=== PATIENT | female | born 1970 | race Caucasian/White ===

== ENCOUNTER 2018-08-31 05:06 | Emergency (ER) | payer MEDICAID ==
[~2018-08-31] VITALS: Ht 167.6 cm; Wt 56.7 kg
--- NOTE | 2018-08-31 05:12 | NUR ---
Pt. ambulated into ED w/ c/o SOB x 5 days, states "inhaler stopped working" c/o nausea, wheezes heard throughout all [facility] bilat., denies CP/MCKEON/F,
--- NOTE | 2018-08-31 05:14 | NUR ---
at bedside for MSE
[2018-08-31] MEDS ORDERED: IPRATROPIUM BROMIDE 0.5 MG/2.5 ML NEBU NEB ONE ×2 (05:15→07:30)
[2018-08-31] MEDS ORDERED: ALBUTEROL SULFATE 2.5 MG/3 ML NEBU NEB ONE ×2 (05:15→07:30)
[2018-08-31] MEDS ORDERED: ALBUTEROL SULFATE 2.5 MG/3 ML NEBU ONE ×2 (05:20→07:41)
[2018-08-31] MEDS ORDERED: IPRATROPIUM BROMIDE 0.5 MG/2.5 ML NEBU ONE ×2 (05:20→07:41)
--- NOTE | 2018-08-31 05:20 | NUR ---
RT at bedside for breathing tx
[2018-08-31] MEDS ORDERED: methylPREDNISolone SOD SUCC 125 MG/2 ML VIAL IV ONE (06:00)
[2018-08-31] MEDS: ALBUTEROL SULFATE 2.5 MG/3 ML NEBU NEB ONE ×2 (06:00→08:39)
[2018-08-31] MEDS ORDERED: MAGNESIUM SULFATE 2 GM in IV DEXTROSE 5% 100 ML IV ONE (06:00)
[2018-08-31] MEDS: IPRATROPIUM BROMIDE 0.5 MG/2.5 ML NEBU NEB ONE ×2 (06:00→08:39)
[2018-08-31] MEDS ORDERED: IV NORMAL SALINE 1000 ML BAG IV ONE (06:00)
[2018-08-31] MEDS ORDERED: methylPREDNISolone SOD SUCC 125 MG/2 ML VIAL ONE (06:15)
[2018-08-31] MEDS ORDERED: MAGNESIUM SULFATE/D5W 100 ML ONE (06:18)
[2018-08-31] MEDS ORDERED: MAGNESIUM SULFATE 1 GM/2 ML VIAL ONE (06:18)
[2018-08-31 07:00] LABS: BASOPHILS # (AUTO) 0.1 K/uL (0.0-8.0); CREATININE 0.7 mg/dL (0.6-1.3); EOSINOPHILS # (AUTO) 0.7 K/uL (0.0-0.7); EOSINOPHILS % (AUTO) 9.8 % (0.0-7.0); HEMATOCRIT 39.6 % (31.2-41.9); HEMOGLOBIN 13.7 g/dL (10.9-14.3); LYMPHOCYTES # (AUTO) 1.8 K/uL (20.0-40.0); LYMPHOCYTES % (AUTO) 26.6 % (20.5-51.5); MEAN CORPUSCULAR HEMOGLOBIN 29.4 uug (24.7-32.8); MEAN CORPUSCULAR HGB CONC 35 g/dL (32.3-35.6); MEAN CORPUSCULAR VOLUME 85.2 fL (75.5-95.3); MONOCYTES # (AUTO) 0.6 K/uL (2.0-10.0); MONOCYTES % (AUTO) 9.3 % (0.0-11.0); NEUTROPHILS # (AUTO) 3.7 K/uL (1.8-8.9); NEUTROPHILS % (AUTO) 53.3 % (38.5-71.5); PLATELET COUNT (AUTO) 220 K/uL (179-408); RED BLOOD CELL COUNT(AUTO) 4.65 MIL/uL (3.63-4.92); WHITE BLOOD COUNT (AUTO) 6.9 K/uL (3.8-11.8)
--- NOTE | 2018-08-31 07:03 | NUR ---
Report given to Christina GRIFFIN.
[2018-08-31 07:14] LABS: BILIRUBIN,DIRECT 0.1 mg/dL (0.0-0.2); BILIRUBIN,TOTAL 0.2 mg/dL (0.2-1.0); TOTAL PROTEIN, SERUM 7.1 g/dL (6.4-8.2)
[2018-08-31] MEDS ORDERED: ALBUTEROL SULFATE 2.5 MG/ 0.5 ML NEBU ONE (07:41)
[2018-08-31] MEDS ORDERED: LORAZEPAM 0.5 MG TABLET PO ONE (08:30)
[2018-08-31] MEDS ORDERED: LORAZEPAM 1 MG TABLET ONE (08:31)
--- NOTE | 2018-08-31 08:35 | NUR ---
Pt states feeling better.
--- NOTE | 2018-08-31 08:40 | NUR ---
IV removed. Catheter intact and site benign. Pressure and 4x4 gauze applied to site. No bleeding noted.
[2018-08-31 08:41] VITALS: BP 112/67
--- NOTE | 2018-08-31 08:41 | NUR ---
Patient discharged to home in stable conditon. Written and verbal after care instructions given. Patient verbalizes understanding of instructions.
== END 2018-08-31 08:43 | disposition home or self-care (01) ==
LOC: ER 05:08
DX: J45.901 Unspecified asthma with (acute) exacerbation (principal); Z88.1 Allergy status to other antibiotic agents
CPT/HCPCS: 36415; 71045; 80048; 80076; 83880; 84484; 85025; 94644 ×2; 96365; 96366; 96375; 99285; J2930; J3475 ×2; 70030-TC; A4663; J3590; J7030

== ENCOUNTER 2019-11-03 20:56 | Emergency (ER) | payer MEDICAID, OTHER ==
[~2019-11-03] VITALS: Ht 167.6 cm; Wt 61.2 kg
[2019-11-03] MEDS ORDERED: HYDROCODONE/APAP 10-325 MG TABLET ONE (22:13)
[2019-11-03] MEDS ORDERED: SULFAMETH/TRIMETH 800/160 MG TABLET ONE (22:13)
[2019-11-03] MEDS: HYDROCODONE/APAP 10-325 MG TABLET PO ONE (22:16)
[2019-11-03] MEDS: SULFAMETH/TRIMETH 800/160 MG TABLET PO ONE (22:16)
--- NOTE | 2019-11-03 22:32 | NUR ---
Patient discharged to home in stable conditon. Written and verbal after care instructions given. Patient verbalizes understanding of instructions. Pt walked out of ER in stable gait. No acute distress noted. Vital signs stable.
[2019-11-03 22:33] VITALS: BP 110/62
== END 2019-11-03 22:34 | disposition home or self-care (01) ==
LOC: ER 20:59
DX: L08.9 Local infection of the skin and subcutaneous tissue, unspecified (principal); F10.10 Alcohol abuse, uncomplicated; J45.909 Unspecified asthma, uncomplicated; Z88.8 Allergy status to other drugs, medicaments and biological substances
CPT/HCPCS: A4663

== ENCOUNTER 2021-03-07 00:28 | Emergency (ER) | payer OTHER ==
[~2021-03-07] VITALS: Ht 167.6 cm; Wt 63.5 kg
--- NOTE | 2021-03-07 00:47 | NUR ---
MD Granados at bedside to do MSE
--- NOTE | 2021-03-07 01:23 | NUR ---
Patient discharged to home in stable condition. Written and verbal after care instructions given. Patient verbalizes understanding of instructions. Stressed follow up or return to ER for worsening s/s. Pt walked with steady gait. Pt. instructed not to drive. Pt. ws picked up by friend.
[2021-03-07 01:24] VITALS: BP 115/68
== END 2021-03-07 01:26 | disposition home or self-care (01) ==
LOC: ER 00:37
DX: Z47.89 Encounter for other orthopedic aftercare (principal); M79.671 Pain in right foot; J45.909 Unspecified asthma, uncomplicated
CPT/HCPCS: A4663

== ENCOUNTER 2022-05-27 02:12 | Emergency (ER) | payer OTHER ==
[~2022-05-27] VITALS: Ht 167.6 cm; Wt 68.0 kg
--- NOTE | 2022-05-27 03:22 | NUR ---
Pt here for L leg cellulitis and pain. No distress noted at this time. Pt able to ambulate and make needs known.
[2022-05-27] MEDS ORDERED: CEFAZOLIN 1 G in IV DEXTROSE 5% 50 ML IV ONE (03:45)
[2022-05-27] MEDS ORDERED: OXYCODONE/APAP 5-325 MG TABLET PO ONE ×2 (03:45→05:30)
[2022-05-27] MEDS ORDERED: OXYCODONE/APAP 5-325 MG TABLET ONE ×2 (03:52→05:25)
[2022-05-27] MEDS ORDERED: CEFAZOLIN 1 G VIAL ONE (04:07)
[2022-05-27 04:54] LABS: HEMATOCRIT 38.1 % (31.2-41.9); MEAN CORPUSCULAR HEMOGLOBIN 29.5 uug (24.7-32.8); MEAN CORPUSCULAR VOLUME 87.5 fL (75.5-95.3); PLATELET COUNT (AUTO) 162 K/uL (179-408)
[2022-05-27 04:59] LABS: CREATININE 0.9 mg/dL (0.6-1.3)
[2022-05-27 05:02] LABS: *BILIRUBIN,URIN NEGATIVE (NEGATIVE); *CLARITY,URINE SLIGHTLY CLOUDY (CLEAR); *COLOR,URINE YELLOW (YELLOW); *KETONES,URINE NEGATIVE (NEGATIVE); *UROBILINOGEN,URINE 0.2 E.U./dl (NORMAL); LEUKOCYTE ESTERASE ,URINE NEGATIVE (NEGATIVE); NITRITE, URINE NEGATIVE (NEGATIVE); UGLUCOSE NEGATIVE (NEGATIVE)
[2022-05-27 05:05] LABS: BILIRUBIN,DIRECT 0.1 mg/dL (0.0-0.2); BILIRUBIN,TOTAL 0.3 mg/dL (0.2-1.0); TOTAL PROTEIN, SERUM 7.3 g/dL (6.4-8.2)
[2022-05-27] MEDS ORDERED: MAGNESIUM SULFATE/D5W 200 ML ONE (05:07)
[2022-05-27 05:13] LABS: *BLOOD, URINE TRACE (NEGATIVE)
[2022-05-27] MEDS: MAGNESIUM SULFATE/D5W 100 ML IV SCH (05:13)
[2022-05-27] MEDS ORDERED: CEPH500C2 PO (05:14)
[2022-05-27] MEDS ORDERED: SULF1TAB48 PO (05:14)
[2022-05-27] MEDS ORDERED: OXYC-128 PO (05:14)
[2022-05-27 05:42] LABS: BACTERIA,URINE FEW /HPF (NONE SEEN); SQUAMOUS EPITHELIAL CELL,UR MANY /HPF (NONE SEEN); WBC,URINE 0-3 /HPF (0-3)
[2022-05-27 07:08] VITALS: BP 129/70
== END 2022-05-27 07:08 | disposition home or self-care (01) ==
LOC: ER 02:15
DX: S80.812A Abrasion, left lower leg, initial encounter (principal); L03.116 Cellulitis of left lower limb; W22.03XA Walked into furniture, initial encounter; Y92.89 Other specified places as the place of occurrence of the external cause; J45.909 Unspecified asthma, uncomplicated
CPT/HCPCS: 99284; 96365; 96375; 80076; 80048; 81001; 83735; 85025; 36415; J0690; J3475; A4663

== ENCOUNTER 2022-08-21 02:18 | Emergency (ER) | payer OTHER ==
[~2022-08-21] VITALS: Ht 167.6 cm; Wt 68.0 kg
[~2022-08-21 02:18] MED LIST: CEPH500C2 PO; OXYC-128 PO; SULF1TAB48 PO
--- NOTE | 2022-08-21 03:20 | NUR ---
seen and exmined by Dr. Connolly
--- NOTE | 2022-08-21 03:25 | NUR ---
Measured and marked left leg redness site. per Dr. Connolly
[2022-08-21] MEDS ORDERED: SULFAMETH/TRIMETH 800/160 MG TABLET ONE (03:27)
[2022-08-21] MEDS ORDERED: SULFAMETH/TRIMETH 800/160 MG TABLET PO ONE (03:30)
[2022-08-21] MEDS ORDERED: SULF1TAB48 PO (03:34)
[2022-08-21] MEDS ORDERED: IBUPROFEN 600 MG TABLET ONE (03:40)
[2022-08-21] MEDS ORDERED: IBUPROFEN 600 MG TABLET PO ONE (03:45)
[2022-08-21 03:53] VITALS: BP 120/80
--- NOTE | 2022-08-21 03:53 | NUR ---
Patient discharged to home in stable condition. Written and verbal after care instructions given. Patient verbalizes understanding of instructions. Stressed follow up or return to ER for worsening s/s.
== END 2022-08-21 03:54 | disposition home or self-care (01) ==
LOC: ER 02:21
DX: L03.115 Cellulitis of right lower limb (principal); J45.909 Unspecified asthma, uncomplicated; R03.0 Elevated blood-pressure reading, without diagnosis of hypertension; Z88.1 Allergy status to other antibiotic agents
CPT/HCPCS: A4663

== ENCOUNTER → 2022-10-27 | Emergency (ER) | payer OTHER ==
[~2022-10-27] VITALS: Ht 170.2 cm; Wt 68.0 kg
[~2022-10-27] MED LIST changes: +CEPH250C PO; +HYDR-4209 PO; +MORPHINE SULFATE 2 MG/1 ML DISP.SYRIN ONE; +MORPHINE SULFATE 4 MG/1 ML DISP.SYRIN ONE; +TRIA15CR2 TP
[2022-10-27] MEDS: MORPHINE SULFATE 4 MG/1 ML DISP.SYRIN IM ONE (03:07)
--- NOTE | 2022-10-27 03:36 | NUR ---
Late entry: Patient into room #4-a seen by ER MD. Medicated for pain as per order, okay for discharge home with family. ACI given states understanding.
[2022-10-27 03:38] VITALS: BP 121/55
== END | disposition home or self-care (01) ==
LOC: ER 02:19
DX: T63.481A Toxic effect of venom of other arthropod, accidental (unintentional), initial encounter (principal); R60.0 Localized edema; Y92.89 Other specified places as the place of occurrence of the external cause; J45.909 Unspecified asthma, uncomplicated; Z88.1 Allergy status to other antibiotic agents
CPT/HCPCS: 99283; 73630; 96372; J2270 ×2; A4663

== ENCOUNTER 2023-05-22 02:23 | Emergency (ER) | payer OTHER ==
[~2023-05-22] VITALS: Ht 170.2 cm; Wt 68.0 kg
[~2023-05-22 02:23] MED LIST changes: +CYCL5TAB PO; -MORPHINE SULFATE 2 MG/1 ML DISP.SYRIN ONE; -MORPHINE SULFATE 4 MG/1 ML DISP.SYRIN ONE; +NAPR-1009 PO
[2023-05-22] MEDS ORDERED: LORAZEPAM 2 MG/1 ML VIAL ONE (02:58)
[2023-05-22] MEDS ORDERED: LORAZEPAM 2 MG/1 ML VIAL IV ONE (03:00)
[2023-05-22] MEDS ORDERED: ONDANSETRON 4 MG/2 ML VIAL ONE (03:50)
[2023-05-22] MEDS ORDERED: HYDROMORPHONE 1 MG/1 ML DISP.SYRIN ONE (03:51)
[2023-05-22] MEDS ORDERED: ONDANSETRON 4 MG/2 ML VIAL IV ONE (04:00)
[2023-05-22] MEDS ORDERED: HYDROMORPHONE 1 MG/1 ML DISP.SYRIN IV ONE (04:00)
[2023-05-22] MEDS ORDERED: IBUP-1955 PO (05:28)
[2023-05-22] MEDS ORDERED: CYCL10TA9 PO (05:28)
[2023-05-22 06:42] VITALS: BP 123/74; O2SAT 100
== END 2023-05-22 06:30 | disposition home or self-care (01) ==
LOC: ER 02:39
DX: M62.830 Muscle spasm of back (principal); M54.6 Pain in thoracic spine; M54.50 Low back pain, unspecified; R07.89 Other chest pain; J45.909 Unspecified asthma, uncomplicated; Z88.1 Allergy status to other antibiotic agents; Z79.899 Other long term (current) drug therapy
CPT/HCPCS: 99284; 96374; 71045; 96375; 93005; J2060; J2405; J1170; A4663

== ENCOUNTER 2024-04-01 10:40 | Emergency (ER) | payer OTHER ==
[~2024-04-01] VITALS: Ht 170.2 cm; Wt 68.0 kg
[~2024-04-01 10:40] MED LIST changes: +CYCL10TA9 PO; +IBUP-1955 PO; +NAPR500T6 PO; +NITR-104 PO; +PHEN-704 PO
[2024-04-01] MEDS ORDERED: LIDOCAINE 4% TOPICAL 50 ML BOTTLE ONE (11:26)
[2024-04-01] MEDS ORDERED: NEOMY/BACITRAC/POLYMI OINT 28.35 GM TUBE ONE (11:29)
[2024-04-01] MEDS: LIDOCAINE 4% TOPICAL 50 ML BOTTLE TP ONE (11:40)
[2024-04-01] MEDS: NEOMY/BACITRA/POLYMYXIN B OINT UD PACKET TP ONE (11:47)
[2024-04-01] MEDS ORDERED: HYDR-3972 PO (12:50)
[2024-04-01 12:57] VITALS: BP 133/70; TEMP 97; O2SAT 99
== END 2024-04-01 13:00 | disposition home or self-care (01) ==
LOC: ER 10:40
DX: S52.591A Other fractures of lower end of right radius, initial encounter for closed fracture (principal); S93.492A Sprain of other ligament of left ankle, initial encounter; S80.01XA Contusion of right knee, initial encounter; S80.02XA Contusion of left knee, initial encounter; S60.212A Contusion of left wrist, initial encounter; S70.312A Abrasion, left thigh, initial encounter; S60.512A Abrasion of left hand, initial encounter; S60.417A Abrasion of left little finger, initial encounter; J45.909 Unspecified asthma, uncomplicated; Z98.890 Other specified postprocedural states; Z79.899 Other long term (current) drug therapy; Z79.1 Long term (current) use of non-steroidal anti-inflammatories (NSAID); Z88.5 Allergy status to narcotic agent; Z88.1 Allergy status to other antibiotic agents; W18.39XA Other fall on same level, initial encounter; Y93.89 Activity, other specified; Y92.89 Other specified places as the place of occurrence of the external cause; Y99.8 Other external cause status
CPT/HCPCS: 73100; 73120; 73560; 73600; A4606; A4663

== ENCOUNTER 2024-08-19 18:47 | Emergency (ER) | payer OTHER ==
[~2024-08-19] VITALS: Ht 170.2 cm; Wt 66.2 kg
[~2024-08-19 18:47] MED LIST changes: +HYDR-3972 PO
[2024-08-19] MEDS ORDERED: HYDROMORPHONE 1 MG/1 ML DISP.SYRIN ONE (19:56)
[2024-08-19] MEDS ORDERED: DICYCLOMINE HCL LIQ 10 MG/5 ML UDC ONE (19:56)
[2024-08-19] MEDS ORDERED: ONDANSETRON 4 MG/2 ML VIAL ONE (19:56)
[2024-08-19] MEDS ORDERED: DIPHENOXYLATE HCL/ATROP SULF TABLET ONE (19:56)
[2024-08-19 19:57] LABS: BASOPHILS % (AUTO) 0.3 % (0.0-2.0); EOSINOPHILS # (AUTO) 0.2 K/uL (0.0-0.7); EOSINOPHILS % (AUTO) 1.4 % (0.0-7.0); HEMATOCRIT 43.8 % (31.2-41.9); HEMOGLOBIN 14.7 g/dL (10.9-14.3); LYMPHOCYTES # (AUTO) 1.7 K/uL (0.8-4.8); LYMPHOCYTES % (AUTO) 15.3 % (20.5-51.5); MEAN CORPUSCULAR HEMOGLOBIN 29.3 uug (24.7-32.8); MEAN CORPUSCULAR HGB CONC 34 g/dL (32.3-35.6); MEAN CORPUSCULAR VOLUME 87.6 fL (75.5-95.3); MONOCYTES # (AUTO) 0.8 K/uL (0.1-1.30); MONOCYTES % (AUTO) 7.8 % (0.0-11.0); NEUTROPHILS # (AUTO) 8.2 K/uL (1.8-8.9); NEUTROPHILS % (AUTO) 75.2 % (38.5-71.5); PLATELET COUNT (AUTO) 182 K/uL (179-408); RED CELL DISTRIBUTION WIDTH 13.4 % (12.3-17.7); WHITE BLOOD COUNT (AUTO) 10.8 K/uL (3.8-11.8)
[2024-08-19 20:00] LABS: DIFFERENTIAL COMMENT 1
[2024-08-19 20:10] LABS: ALBUMIN 3.7 g/dL (3.4-5.0); BILIRUBIN,DIRECT 0.2 mg/dL (0.0-0.2); BILIRUBIN,TOTAL 0.6 mg/dL (0.2-1.0); CALCIUM 9.3 mg/dL (8.5-10.1); CREATININE 0.7 mg/dL (0.6-1.3); POTASSIUM 4.4 mmol/L (3.5-5.1); TOTAL PROTEIN, SERUM 7.5 g/dL (6.4-8.2)
[2024-08-19] MEDS: DICYCLOMINE HCL LIQ 10 MG/5 ML UDC PO ONE (20:10)
[2024-08-19] MEDS: DIPHENOXYLATE HCL/ATROP SULF TABLET PO ONE (20:10)
[2024-08-19] MEDS: ONDANSETRON 4 MG/2 ML VIAL IV ONE (20:10)
[2024-08-19] MEDS: HYDROMORPHONE 1 MG/1 ML DISP.SYRIN IV ONE (20:10)
[2024-08-19] MEDS: IV LACTATED RINGERS SOLUTION 1,000 ML IV ONE (20:18)
[2024-08-19] MEDS ORDERED: DICY20TA11 PO (21:03)
[2024-08-19] MEDS ORDERED: ONDA4TAB11 PO (21:03)
[2024-08-19] MEDS ORDERED: HYDR-3980 PO (21:03)
[2024-08-19 21:34] VITALS: BP 118/70; TEMP 98; O2SAT 98
== END 2024-08-19 21:34 | disposition home or self-care (01) ==
LOC: ER 18:47
DX: S76.012A Strain of muscle, fascia and tendon of left hip, initial encounter (principal); R10.9 Unspecified abdominal pain; R11.2 Nausea with vomiting, unspecified; R19.7 Diarrhea, unspecified; J45.909 Unspecified asthma, uncomplicated; Z88.1 Allergy status to other antibiotic agents; X58.XXXA Exposure to other specified factors, initial encounter; Y93.89 Activity, other specified; Y92.89 Other specified places as the place of occurrence of the external cause; Y99.8 Other external cause status
CPT/HCPCS: 99284; 96374; 96361; 96375; 80076; 80048; 83690; 85025; 36415; J2405; J1171; J7120; A4606; A4663

== ENCOUNTER 2024-08-25 18:59 | Inpatient (IN) | payer OTHER ==
[~2024-08-25] VITALS: Ht 170.2 cm; Wt 66.7 kg
[~2024-08-25 18:59] MED LIST changes: +DICY20TA11 PO; +HYDR-3980 PO; +ONDA4TAB11 PO
[2024-08-25] MEDS ORDERED: MORPHINE SULFATE 2 MG/1 ML DISP.SYRIN ONE (20:04)
[2024-08-25] MEDS ORDERED: ONDANSETRON 4 MG/2 ML VIAL ONE (20:04)
[2024-08-25 20:07] LABS: BASOPHILS # (AUTO) 0.1 K/UL (0.0-0.2); BASOPHILS % (AUTO) 0.5 % (0.0-2.0); EOSINOPHILS # (AUTO) 0.4 K/uL (0.0-0.7); EOSINOPHILS % (AUTO) 2.7 % (0.0-7.0); HEMATOCRIT 45.1 % (31.2-41.9); HEMOGLOBIN 15.1 g/dL (10.9-14.3); LYMPHOCYTES # (AUTO) 1.6 K/uL (0.8-4.8); LYMPHOCYTES % (AUTO) 12.1 % (20.5-51.5); MEAN CORPUSCULAR HEMOGLOBIN 29.2 uug (24.7-32.8); MEAN CORPUSCULAR HGB CONC 34 g/dL (32.3-35.6); MEAN CORPUSCULAR VOLUME 86.9 fL (75.5-95.3); MONOCYTES # (AUTO) 0.8 K/uL (0.1-1.30); MONOCYTES % (AUTO) 5.8 % (0.0-11.0); NEUTROPHILS # (AUTO) 10.7 K/uL (1.8-8.9); NEUTROPHILS % (AUTO) 78.9 % (38.5-71.5); PLATELET COUNT (AUTO) 216 K/uL (179-408); RED BLOOD CELL COUNT(AUTO) 5.19 MIL/uL (3.63-4.92); RED CELL DISTRIBUTION WIDTH 12.9 % (12.3-17.7); WHITE BLOOD COUNT (AUTO) 13.6 K/uL (3.8-11.8)
[2024-08-25 20:21] LABS: ALBUMIN 3.7 g/dL (3.4-5.0); BILIRUBIN,TOTAL 0.7 mg/dL (0.2-1.0); CALCIUM 9.4 mg/dL (8.5-10.1); CREATININE 0.6 mg/dL (0.6-1.3); POTASSIUM 3.9 mmol/L (3.5-5.1); TOTAL PROTEIN, SERUM 7.6 g/dL (6.4-8.2)
[2024-08-25] MEDS: IV NS 1000 ML 1,000 ML IV ONE (20:22)
[2024-08-25] MEDS: ONDANSETRON 4 MG/2 ML VIAL IV ONE (20:23)
[2024-08-25] MEDS: MORPHINE SULFATE 2 MG/1 ML DISP.SYRIN IV ONE (20:23)
[2024-08-25 20:50] LABS: *BLOOD, URINE 2+ (NEGATIVE); *CLARITY,URINE CLEAR (CLEAR); *COLOR,URINE YELLOW (YELLOW); *KETONES,URINE NEGATIVE (NEGATIVE); *PROTEIN,URINE 1+ (NEGATIVE); *UROBILINOGEN,URINE 0.2 E.U./dl (NORMAL); LEUKOCYTE ESTERASE ,URINE 1+ (NEGATIVE); NITRITE, URINE NEGATIVE (NEGATIVE); UGLUCOSE NEGATIVE (NEGATIVE)
[2024-08-25 20:51] LABS: *BILIRUBIN,URIN 1+ (NEGATIVE)
[2024-08-25 20:52] LABS: *URINE HCG, QUAL NEGATIVE (NEGATIVE)
[2024-08-25] MEDS ORDERED: CEFTRIAXONE /D5W 50ML IVPB **ER PYXIS IV ONE (22:04)
[2024-08-25] MEDS: CEFTRIAXONE 1 G in IV DEXTROSE 5% 50 ML IV ONE (22:07)
[2024-08-26] MEDS ORDERED: KETOROLAC TROMETHAMINE 30 MG INJ ONE (00:19)
[2024-08-26] MEDS: KETOROLAC TROMETHAMINE 30 MG INJ IVP ONE (00:21)
[2024-08-26] MEDS ORDERED: ONDANSETRON 4 MG/2 ML VIAL IV PRN (01:30)
[2024-08-26] MEDS ORDERED: REMEDY ESSENTIAL ZINC PASTE 113 GM TP PRN (01:30)
[2024-08-26] MEDS ORDERED: ALBUTEROL SULFATE 2.5 MG/3 ML NEBU NEB PRN (01:30)
[2024-08-26] MEDS ORDERED: METRONIDAZOLE 500 MG/NS 100ML 100 ML IV ONE (04:35)
[2024-08-26] MEDS: METRONIDAZOLE 500 MG/NS 100ML 500 MG in PREMIXED 1 EACH IV SCH ×2 (04:51→13:49)
[2024-08-26] MEDS: PANTOPRAZOLE SODIUM 40 MG TABLET.DR PO SCH (06:14)
[2024-08-26 06:44] LABS: BASOPHILS % (AUTO) 0.4 % (0.0-2.0); EOSINOPHILS # (AUTO) 0.4 K/uL (0.0-0.7); EOSINOPHILS % (AUTO) 4.6 % (0.0-7.0); HEMATOCRIT 40.7 % (31.2-41.9); HEMOGLOBIN 13.6 g/dL (10.9-14.3); LYMPHOCYTES # (AUTO) 1.5 K/uL (0.8-4.8); MEAN CORPUSCULAR HEMOGLOBIN 29.7 uug (24.7-32.8); MEAN CORPUSCULAR HGB CONC 33 g/dL (32.3-35.6); MEAN CORPUSCULAR VOLUME 88.7 fL (75.5-95.3); MONOCYTES # (AUTO) 0.7 K/uL (0.1-1.30); MONOCYTES % (AUTO) 8.2 % (0.0-11.0); NEUTROPHILS # (AUTO) 6.2 K/uL (1.8-8.9); NEUTROPHILS % (AUTO) 69.8 % (38.5-71.5); PLATELET COUNT (AUTO) 176 K/uL (179-408); RED BLOOD CELL COUNT(AUTO) 4.58 MIL/uL (3.63-4.92); RED CELL DISTRIBUTION WIDTH 13.2 % (12.3-17.7); WHITE BLOOD COUNT (AUTO) 8.9 K/uL (3.8-11.8)
[2024-08-26 06:52] LABS: CALCIUM 8.8 mg/dL (8.5-10.1); CREATININE 0.8 mg/dL (0.6-1.3); MAGNESIUM 2.3 mg/dL (1.8-2.4); POTASSIUM 3.8 mmol/L (3.5-5.1)
[2024-08-26 06:57] LABS: DIFFERENTIAL COMMENT 1
[2024-08-26 08:31] VITALS: BP 100/57; TEMP 98.3; O2SAT 98
[2024-08-26] MEDS: ACETAMINOPHEN 325 MG TABLET PO PRN (08:52)
[2024-08-26] MEDS: ENOXAPARIN SODIUM 40 MG/0.4 ML DISP.SYRIN SQ SCH (08:54)
[2024-08-26] MEDS ORDERED: FLUT1BLS IH (12:14)
[2024-08-26] MEDS: FLUTICASONE/VILANTEROL 1 EACH BLST.W.DEV IH SCH (13:50)
[2024-08-26] MEDS: IV NS 1000 ML 1,000 ML IV PRN (19:57)
[2024-08-26 20:15] VITALS: BP 102/51; TEMP 98.1; O2SAT 96
[2024-08-26] MEDS: DICYCLOMINE HCL 10 MG CAPSULE PO PRN (20:50)
[2024-08-26] MEDS: DOCUSATE SODIUM 100 MG/10 ML LIQUID UDC PO SCH (20:51)
[2024-08-26] MEDS: CEFTRIAXONE 1 G in IV DEXTROSE 5% 50 ML IV SCH (21:37)
[2024-08-27] MEDS: HYDROCODONE/APAP 5-325MG TABLET PO PRN (05:52)
[2024-08-27 05:57] VITALS: BP 111/61; TEMP 97.9; O2SAT 95
[2024-08-27 06:55] LABS: BASOPHILS % (AUTO) 0.4 % (0.0-2.0); EOSINOPHILS # (AUTO) 0.3 K/uL (0.0-0.7); EOSINOPHILS % (AUTO) 4.6 % (0.0-7.0); HEMOGLOBIN 12.3 g/dL (10.9-14.3); LYMPHOCYTES # (AUTO) 1.5 K/uL (0.8-4.8); LYMPHOCYTES % (AUTO) 23.1 % (20.5-51.5); MEAN CORPUSCULAR HEMOGLOBIN 29.9 uug (24.7-32.8); MEAN CORPUSCULAR HGB CONC 34 g/dL (32.3-35.6); MEAN CORPUSCULAR VOLUME 87.4 fL (75.5-95.3); MONOCYTES # (AUTO) 0.6 K/uL (0.1-1.30); MONOCYTES % (AUTO) 9.1 % (0.0-11.0); NEUTROPHILS % (AUTO) 62.8 % (38.5-71.5); PLATELET COUNT (AUTO) 154 K/uL (179-408); RED BLOOD CELL COUNT(AUTO) 4.12 MIL/uL (3.63-4.92); WHITE BLOOD COUNT (AUTO) 6.3 K/uL (3.8-11.8)
[2024-08-27 07:10] LABS: DIFFERENTIAL COMMENT 1
[2024-08-27 07:13] LABS: CALCIUM 8.4 mg/dL (8.5-10.1); CREATININE 0.7 mg/dL (0.6-1.3); MAGNESIUM 1.9 mg/dL (1.8-2.4); PHOSPHOROUS 3.2 mg/dL (2.5-4.9); POTASSIUM 4.1 mmol/L (3.5-5.1)
[2024-08-27] MEDS: DOCUSATE SODIUM 100 MG CAPSULE PO SCH (08:31)
[2024-08-27] MEDS ORDERED: METR500T PO (10:08)
[2024-08-27] MEDS ORDERED: AMOX-427 PO (10:08)
== END 2024-08-27 11:00 | disposition home or self-care (01) | DRG 463 ==
LOC: ER 18:59 → MEDSURG3 22:30
PROVIDERS: ADMIT Nurse Practitioner Family; ATTEND Nurse Practitioner Family
DX: N39.0 Urinary tract infection, site not specified (principal); A04.9 Bacterial intestinal infection, unspecified; J45.909 Unspecified asthma, uncomplicated; K57.30 Diverticulosis of large intestine without perforation or abscess without bleeding; Z88.1 Allergy status to other antibiotic agents
CPT/HCPCS: 36415; 83690; 83735; 84100; 84703; 85025; 87040; A4663; G0378; J0696; J1650; J1885; J2270; J2405; J3490; J7040; J7042

== ENCOUNTER 2025-04-26 12:31 | Emergency (ER) | payer OTHER ==
[~2025-04-26] VITALS: Ht 167.6 cm; Wt 65.8 kg
[~2025-04-26 12:31] MED LIST changes: +AMOX-427 PO; -CEPH250C PO; -CEPH500C2 PO; -CYCL10TA9 PO; -CYCL5TAB PO; -DICY20TA11 PO; +FLUT1BLS IH; -HYDR-3972 PO; -HYDR-3980 PO; -HYDR-4209 PO; -IBUP-1955 PO; +METR500T PO; -NAPR-1009 PO; -NAPR500T6 PO; -NITR-104 PO; -ONDA4TAB11 PO; -OXYC-128 PO; -PHEN-704 PO; -SULF1TAB48 PO; -TRIA15CR2 TP
[2025-04-26 12:56] VITALS: O2SAT 98
== END 2025-04-26 16:28 | disposition left against medical advice (07) ==
LOC: ER 12:31
DX: R11.0 Nausea (principal); Z53.21 Procedure and treatment not carried out due to patient leaving prior to being seen by health care provider
CPT/HCPCS: A4606; A4663

== ENCOUNTER 2025-07-06 19:13 | Emergency (ER) | payer OTHER ==
[~2025-07-06] VITALS: Ht 170.2 cm; Wt 68.0 kg
[2025-07-06 19:13] VITALS: BP 124/71
[~2025-07-06 19:13] MED LIST changes: -AMOX-427 PO; -METR500T PO
[2025-07-06 19:33] LABS: *BILIRUBIN,URIN NEGATIVE (NEGATIVE); *BLOOD, URINE 3+ (NEGATIVE); *CLARITY,URINE TURBID (CLEAR); *COLOR,URINE YELLOW (YELLOW); *KETONES,URINE TRACE (NEGATIVE); *PROTEIN,URINE 1+ (NEGATIVE); *UROBILINOGEN,URINE 1.0 E.U./dl (NORMAL); LEUKOCYTE ESTERASE ,URINE 1+ (NEGATIVE); NITRITE, URINE NEGATIVE (NEGATIVE); UGLUCOSE NEGATIVE (NEGATIVE)
[2025-07-06 19:39] LABS: SQUAMOUS EPITHELIAL CELL,UR FEW /HPF (NONE SEEN)
[2025-07-06] MEDS ORDERED: PHENAZOPYRIDINE HCL 100 MG TABLET ONE (19:49)
[2025-07-06] MEDS: PHENAZOPYRIDINE HCL 100 MG TABLET PO ONE (19:51)
[2025-07-06] MEDS ORDERED: CEFTRIAXONE 500 MG VIAL ONE (19:56)
[2025-07-06] MEDS ORDERED: LIDOCAINE HCL 1% 20 ML VIAL ONE (19:56)
[2025-07-06] MEDS: CEFTRIAXONE 500 MG VIAL IM ONE (20:01)
[2025-07-06] MEDS ORDERED: PHEN-894 PO (20:02)
[2025-07-06] MEDS ORDERED: CEFP200T14 PO (20:02)
[2025-07-06 20:17] VITALS: BP 120/71; TEMP 98; O2SAT 97
== END 2025-07-06 20:17 | disposition home or self-care (01) ==
LOC: ER 19:13
DX: N30.90 Cystitis, unspecified without hematuria (principal); J45.909 Unspecified asthma, uncomplicated; Z79.51 Long term (current) use of inhaled steroids; Z87.440 Personal history of urinary (tract) infections; Z88.1 Allergy status to other antibiotic agents; Z88.7 Allergy status to serum and vaccine
CPT/HCPCS: 87086; A4606; A4663; J0696; J3490

== ENCOUNTER 2025-08-07 20:51 | Emergency (ER) | payer OTHER ==
[~2025-08-07] VITALS: Ht 170.2 cm; Wt 68.0 kg
[~2025-08-07 20:51] MED LIST changes: +CEFP200T14 PO; +PHEN-894 PO
[2025-08-07 20:59] VITALS: BP 119/76
[2025-08-07] MEDS ORDERED: IBUPROFEN 600 MG TABLET ONE (21:30)
[2025-08-07] MEDS: IBUPROFEN 600 MG TABLET PO ONE (21:31)
[2025-08-07] MEDS ORDERED: SULFAMETH/TRIMETH 800/160 MG TABLET ONE (22:36)
[2025-08-07] MEDS ORDERED: MUPIROCIN 2% OINT 22 GM TUBE ONE (22:36)
[2025-08-07] MEDS: SULFAMETH/TRIMETH 800/160 MG TABLET PO ONE (22:38)
[2025-08-07] MEDS: BACITRACIN ZINC OINT 15 GM TUBE TOP STA (22:38)
[2025-08-07] MEDS ORDERED: SULF1TAB48 PO (22:47)
[2025-08-07] MEDS ORDERED: CEPH500C2 PO (22:47)
[2025-08-07] MEDS ORDERED: BACI1OIN8 TP (22:47)
[2025-08-07 22:52] VITALS: BP 119/76; O2SAT 97
== END 2025-08-07 22:52 | disposition home or self-care (01) ==
LOC: ER 20:53
DX: L03.313 Cellulitis of chest wall (principal); L03.011 Cellulitis of right finger; L98.A3 Non-pressure chronic ulcer of hand; J45.909 Unspecified asthma, uncomplicated; Z79.51 Long term (current) use of inhaled steroids; Z88.1 Allergy status to other antibiotic agents; Z88.7 Allergy status to serum and vaccine
CPT/HCPCS: A4606; A4663

== ENCOUNTER 2025-09-16 21:36 | Emergency (ER) | payer OTHER ==
[~2025-09-16] VITALS: Ht 170.2 cm; Wt 68.0 kg
[~2025-09-16 21:36] MED LIST changes: +BACI1OIN8 TP; +CEPH500C2 PO; +SULF1TAB48 PO
[2025-09-16 21:49] VITALS: BP 132/65
[2025-09-16] MEDS ORDERED: HYDR-3980 PO (22:11)
[2025-09-16] MEDS ORDERED: ONDA-243 PO (22:11)
[2025-09-16] MEDS ORDERED: DIPH25CA83 PO (22:11)
[2025-09-16] MEDS ORDERED: CLIN-188 PO (22:11)
[2025-09-16] MEDS ORDERED: DEXAMETHASONE SOD PHOSPHATE 4 MG INJ ONE (22:12)
[2025-09-16] MEDS ORDERED: diphenhydrAMINE 50 MG/1 ML VIAL ONE (22:13)
[2025-09-16] MEDS ORDERED: ONDANSETRON ODT 4 MG TAB.RAPDIS ONE (22:13)
[2025-09-16] MEDS ORDERED: HYDROCODONE/APAP 10-325 MG TABLET ONE (22:13)
[2025-09-16] MEDS: ONDANSETRON ODT 4 MG TAB.RAPDIS SL ONE (22:17)
[2025-09-16] MEDS: HYDROCODONE/APAP 10-325 MG TABLET PO ONE (22:17)
[2025-09-16] MEDS: DEXAMETHASONE SOD PHOSPHATE 4 MG INJ IM ONE (22:22)
[2025-09-16] MEDS: diphenhydrAMINE 50 MG/1 ML VIAL IM ONE (22:22)
[2025-09-16 22:57] VITALS: BP 132/65; TEMP 98.1; O2SAT 98
== END 2025-09-16 22:58 | disposition home or self-care (01) ==
LOC: ER 21:49
DX: R21 Rash and other nonspecific skin eruption (principal); L29.9 Pruritus, unspecified; J45.909 Unspecified asthma, uncomplicated; Z79.51 Long term (current) use of inhaled steroids; Z88.1 Allergy status to other antibiotic agents; Z88.7 Allergy status to serum and vaccine
CPT/HCPCS: 99284; 96372 ×2; J0696; J1100; J1200; A4606; A4663; Q0162